=== PATIENT | male | born 1960 | race Caucasian/White ===

== ENCOUNTER 2021-05-29 16:59 | Outpatient (CLI) | payer MEDICARE ==
[2021-05-29 18:28] LABS: Hemoglobin 10.5 g/dL (13.5-17.5); Mean Corpuscular HGB CONC 31.6 g/dL (32.0-36.0); Mean Corpuscular Hemoglobin 28.5 pg (27.0-33.0); Mean Platelet Volume 8.8 fl (7.4-10.4); Platelet Count 442 10x3/uL (150-450); RBC Distribution Width 14.5 % (11.5-14.5); Red Blood Cell (RBC) Count 3.69 10x6/uL (4.32-5.72); White Blood Cell (WBC) Count 10.6 10x3/uL (3.5-10.5)
[2021-05-29 18:36] LABS: INR-International Normal Ratio 1.1; PTT 25.9 sec (22.0-33.0); Prothrombin Time 11.7 sec (9.5-12.1)
[2021-05-29 18:38] LABS: Anion Gap 15 mmol/L (10-20); BUN (Urea Nitrogen) 20 mg/dL (8.4-25.7); Calc. Creatinine Clearance 0 mL/min (70-130); Calcium 9.5 mg/dL (7.8-10.44); Carbon Dioxide 26 mmol/L (23-31); Chloride 103 mmol/L (98-107); Glucose 110 mg/dL (80-115); Potassium 4.5 mmol/L (3.5-5.1); Sodium 139 mmol/L (136-145)
[2021-05-30 11:55] LABS: SARS-CoV-2 PCR by NAA Not Detected (NotDetected)
== END 2021-05-29 17:00 | disposition home or self-care (01) ==
LOC: LABBT 16:59
PROVIDERS: ATTEND Urology
DX: Z01.818 Encounter for other preprocedural examination (principal); N20.0 Calculus of kidney; Z20.822 Contact with and (suspected) exposure to COVID-19; N20.1 Calculus of ureter
CPT/HCPCS: 80048; 81001; 85027; 85610; 85730; 87086; 93005; U0003; U0005; 93010

== ENCOUNTER 2021-06-02 06:22 | Day surgery (SDC) | payer MEDICARE ==
[2021-05-30 10:59] VITALS: BMI 25.7
[2021-06-02] MEDS ORDERED: Iothalamate Meglumine 60% 50 ML VIAL FS ONE (08:28)
[2021-06-02] MEDS ORDERED: Fentanyl 100 MCG/2 ML VIAL ONE ×2 (08:59→10:15)
[2021-06-02] MEDS ORDERED: Ondansetron PF 4 MG/2 ML Vial ONE (09:12)
[2021-06-02] MEDS ORDERED: ePHEDrine 50 MG/ML VIAL ONE (09:12)
[2021-06-02] MEDS ORDERED: Lidocaine 1% PF 5 ML VIAL ONE (09:12)
[2021-06-02] MEDS ORDERED: PROPOFOL 200 MG/20 ML VIAL ONE (09:12)
[2021-06-02] MEDS ORDERED: PHENYLEPHRINE-NS 100 MCG/ML 10 ML SYRINGE ONE (09:12)
[2021-06-02] MEDS ORDERED: Dexamethasone 20 MG/5 ML VIAL ONE (09:12)
[2021-06-02] MEDS ORDERED: Phenazopyridine HCl 100 MG TAB ONE (10:20)
[2021-06-02] MEDS ORDERED: Oxybutynin 5 MG TAB ONE (10:20)
== END 2021-06-02 12:20 | disposition home or self-care (01) ==
LOC: SDC 06:22
PROVIDERS: ATTEND Urology
PROC: 0T768DZ Dilation of Right Ureter with Intraluminal Device, Via Natural or Artificial Opening Endoscopic (ICD-10-PCS; principal; 2021-06-02)
PROC: 0TC68ZZ Extirpation of Matter from Right Ureter, Via Natural or Artificial Opening Endoscopic (ICD-10-PCS; 2021-06-02)
PROC: 0TND8ZZ Release Urethra, Via Natural or Artificial Opening Endoscopic (ICD-10-PCS; 2021-06-02)
DX: N20.1 Calculus of ureter (principal); N35.912 Unspecified bulbous urethral stricture, male; N40.1 Benign prostatic hyperplasia with lower urinary tract symptoms; N13.8 Other obstructive and reflux uropathy; N32.89 Other specified disorders of bladder; E11.9 Type 2 diabetes mellitus without complications; F17.290 Nicotine dependence, other tobacco product, uncomplicated; E78.5 Hyperlipidemia, unspecified; R35.0 Frequency of micturition; M06.9 Rheumatoid arthritis, unspecified; Z86.14 Personal history of Methicillin resistant Staphylococcus aureus infection; Z79.1 Long term (current) use of non-steroidal anti-inflammatories (NSAID); Z79.2 Long term (current) use of antibiotics; Z79.84 Long term (current) use of oral hypoglycemic drugs; Z79.899 Other long term (current) drug therapy
CPT/HCPCS: 52276; 52320; 52332; 71045; 74018; 74420; 82365; C2617; Q9961; 88300; J1100; J1956; J2405; J2704; J3010; J3490

== ENCOUNTER 2021-09-05 15:24 | Outpatient (CLI) | payer MEDICARE | END 2021-09-05 15:25 | disposition home or self-care (01) | LOC: BICULT 15:24 | PROVIDERS: ATTEND Urology | DX: N40.1 Benign prostatic hyperplasia with lower urinary tract symptoms (principal); N35.912 Unspecified bulbous urethral stricture, male; Z87.442 Personal history of urinary calculi; N32.89 Other specified disorders of bladder | CPT/HCPCS: 76770 ==